=== PATIENT | female | born 1955 | race Caucasian/White ===

== ENCOUNTER → 2017-12-06 | Outpatient (CLI) | payer BC ==
--- NOTE | 2017-12-07 14:35 | MAM ---
Screening BILATERAL MAMMOGRAMS HISTORY: SCREENING. No personal nor first-order familial history of breast cancer. COMPARISON: December 22, 2014 TECHNIQUE: Digital 2-D mammograms , and 3-D tomosynthesis,1 of both breasts were performed in CC and MLO orientations. Mammo CAD analysis also performed. FINDINGS: Scattered fibroglandular tissue identified in both breasts. 1 cm focal asymmetry is identified in inferior left breast, between six to 7:00 position. Benign lymph nodes in both axilla. Benign microcalcifications scattered in both breasts. IMPRESSION: Dedicated ultrasound evaluation recommended for focal asymmetry in inferior anterior left breast BI-RADS: 0, incomplete study. Additional imaging recommended. Electronically signed by: Jerrell Lay MD 12/07/2017 2:34 PM CDT
== END ==
LOC: MAMMO 16:21
DX: Z12.31 Encounter for screening mammogram for malignant neoplasm of breast (principal)

== ENCOUNTER → 2017-12-19 | Outpatient (CLI) | payer BC ==
--- NOTE | 2017-12-19 13:35 | MAM ---
EXAM DESCRIPTION: 3D Diagnostic, Bilateral: Digital Mammography CLINICAL HISTORY: 62 yearsFemaleABNORMAL MAMMO focal asymmetry upper outer quadrant anterior left breast.. COMPARISON: 3-D tomosynthesis digital screening bilateral study 12/06/2017.. Reports from prior examinations also reviewed. TECHNIQUE: Left breast LM projection full-field images, 3-D tomosynthesis digital mammographic technique. Also left breast synthesized LM full-field images. CAD not utilized. FINDINGS: Left breast parenchymal density pattern is: Scattered areas of fibroglandular density. No skin thickening or nipple retraction left axillary lymph nodes. Tomography demonstrates that there is no abnormal mammographic finding in the anterior left breast of mass density or focal asymmetry. No suspicious microcalcifications. IMPRESSION: BI-RADS CATEGORY: 2 - BENIGN FINDINGS. FOLLOW UP: Return to routine digital bilateral screening, one year interval from November 2017. Written communication explaining the IMPRESSION and follow-up, will be mailed to the patient and referring health care provider. According to the [employer], yearly mammograms are recommended starting at age 40 and continuing as long as a woman is in good health. Any breast change noted on a breast self-exam should be reported promptly to the patient's healthcare provider. Breast MRI is recommended for women with an approximately 20-25% or greater lifetime risk of breast cancer, including women with a strong family history of breast or ovarian cancer and women who have been treated for Hodgkin's disease. A negative mammographic report should not delay tissue diagnosis in patients with significant clinical history or physical findings. Extremely dense breast tissue limits the sensitivity of digital mammography. Electronically signed by: Nnamdi Fermin MD 12/19/2017 1:33 PM CDT
== END ==
LOC: MAMMO 12:42
DX: R92.8 Other abnormal and inconclusive findings on diagnostic imaging of breast (principal)
CPT/HCPCS: 77066; G0279